=== PATIENT | female | born 1955 | race Two or more races ===

== ENCOUNTER 2019-11-14 07:36 | Outpatient (CLI) | payer OTHER | END 2019-11-14 07:41 | disposition home or self-care (01) | LOC: NUCLEAR 07:36 | PROVIDERS: ATTEND Internal Medicine Gastroenterology | DX: R10.13 Epigastric pain (principal); R11.2 Nausea with vomiting, unspecified; E11.43 Type 2 diabetes mellitus with diabetic autonomic (poly)neuropathy | CPT/HCPCS: 78264; A9541 ==

== ENCOUNTER 2020-01-29 11:53 | Emergency (ER) | payer OTHER ==
[~2020-01-29] VITALS: Ht 170.2 cm; Wt 117.9 kg
[2020-01-29] MEDS ORDERED: SYNTHROID137 MCG PO (12:11)
[2020-01-29] MEDS ORDERED: LOSARTAN-HCTZ1 EAC1 PO (12:11)
[2020-01-29] MEDS ORDERED: D3 + K2 DOTS 11 EACH PO (12:12)
[2020-01-29] MEDS ORDERED: METFORMIN HCL1000 MG PO (12:12)
[2020-01-29] MEDS ORDERED: DRAMAMINE LESS25 MG PO (16:08)
== END 2020-01-29 16:28 | disposition home or self-care (01) ==
LOC: ER 11:53
DX: R42 Dizziness and giddiness (principal); Z20.828 Contact with and (suspected) exposure to other viral communicable diseases